=== PATIENT | male | born 1955 | race Asian ===

== ENCOUNTER 2023-01-21 07:45 | Observation (INO) ==
[2023-01-21 08:23] LABS: ABS Eosinophils 0.1 10^3/uL (0.0-0.5); ABS Lymphocytes 1.5 10^3/uL (1.0-4.8); ABS Neutrophils 7.8 10^3/uL (1.5-7.6); Eosinophil % 1.1 %; Hematocrit 41.3 % (38-53); Hemoglobin 14.4 g/dL (13.2-16.3); Lymphocyte % 14.7 %; Mean Corpuscular Hemoglobin 30.8 pg (27-33); Mean Corpuscular Hgb Conc 34.9 g/dL (31-36); Mean Corpuscular Volume 88.2 fL (80-97); Mean Platelet Volume 7.5 fL (7.5-11.2); Platelet Count 210 10^3/uL (150-450); Red Blood Count 4.69 10^6/uL (4.06-5.63); Red Cell Distribution Width 14.8 % (12-17); White Blood Count 10.5 10^3/uL (3.6-10.2)
[2023-01-21 08:31] LABS: INR 1.1 (0.88-1.18)
[2023-01-21] MEDS ORDERED: Ondansetron 4 mg VIAL 2 MG/ML 2 ml VIAL IV ONE (08:42)
[2023-01-21] MEDS ORDERED: Morphine 2 MG/ML SYRINGE IV ONE (08:42)
[2023-01-21] MEDS ORDERED: Lactated Ringers 1000 ml BAG 1,000 ML IV ONE (08:48)
[2023-01-21 09:04] LABS: Calcium 9.3 mg/dL (8.6-10.3); Creatinine, Serum 2.1 mg/dL (0.67-1.17); Potassium 3.9 mmol/L (3.5-5.0); Total Bilirubin 0.8 mg/dL (0.2-1.0); eGFR CKD-EPI 33.9 (>60)
[2023-01-21 10:07] LABS: Magnesium 2.1 mg/dL (1.9-2.7)
[2023-01-21 10:53] LABS: High Sensitivity Troponin 1 Hr 21 pg/mL (<20)
[2023-01-21 11:23] LABS: Urine Appearance Clear; Urine Bilirubin Negative (Negative); Urine Blood 1+ (Negative); Urine Color Yellow; Urine Glucose Negative (Negative); Urine Ketones Negative (Negative); Urine Nitrite Negative (Negative); Urine Protein Negative (Negative); Urine Urobilinogen Negative (Negative)
[2023-01-21 11:44] LABS: Urine White Blood Cell Trace(0-5/hpf) (Absent)
[2023-01-21 11:45] LABS: Urine Bacteria Absent (Absent); Urine Red Blood Cell Trace(0-2/hpf) (Absent); Urine Squamous Epithelial Cell Present (Absent)
[2023-01-21] MEDS: Enoxaparin 40 MG/0.4 ML SYR SUBCUT SCH (16:00)
[2023-01-22 06:02] LABS: Mean Corpuscular Hemoglobin 30.3 pg (27-33); Mean Platelet Volume 7.4 fL (7.5-11.2); Platelet Count 208 10^3/uL (150-450); Red Blood Count 4.61 10^6/uL (4.06-5.63); Red Cell Distribution Width 14.4 % (12-17); White Blood Count 7.1 10^3/uL (3.6-10.2)
[2023-01-22 06:21] LABS: Calcium 9.1 mg/dL (8.6-10.3); Creatinine, Serum 1.77 mg/dL (0.67-1.17); Potassium 4.3 mmol/L (3.5-5.0); eGFR CKD-EPI 41.6 (>60)
[2023-01-22] MEDS ORDERED: Losartan/HCTZ 100/25 TAB (NF) PO SCH (09:00)
[2023-01-22 10:21] LABS: Folate 7.74 ng/mL (5.90-24.80)
[2023-01-22 10:25] LABS: C Reactive Protein 49.7 mg/L (<8.01)
[2023-01-22] MEDS: Enoxaparin 40 MG/0.4 ML SYR SUBCUT SCH (14:58)
[2023-01-23 06:08] LABS: Calcium 9.5 mg/dL (8.6-10.3); Creatinine, Serum 1.54 mg/dL (0.67-1.17); Potassium 4.2 mmol/L (3.5-5.0); eGFR CKD-EPI 49.1 (>60)
[2023-01-23] MEDS: Enoxaparin 40 MG/0.4 ML SYR SUBCUT SCH (16:11)
[2023-01-24 10:09] VITALS: BP 93/60
== END 2023-01-24 14:12 ==
LOC: EDBD → EDHOLD 07:45 → MERGE 07:45 → ED 07:45 → SUATTDRO 12:13 → MED 13:43
PROVIDERS: ADMIT Pediatrics; ATTEND Internal Medicine